=== PATIENT | female | born 1975 | race Caucasian/White ===

== ENCOUNTER 2017-09-11 09:18 | Emergency (ER) | payer OTHER ==
[~2017-09-11] VITALS: Ht 172.7 cm; Wt 70.5 kg
[~2017-09-11 09:18] MED LIST: Z.0.NO CURRENT MEDS
[2017-09-11 09:42] VITALS: BP 126/88; PULSE 83; RESP 16; TEMP 98.1; O2SAT 99
[2017-09-11] MEDS ORDERED: PROCHLORPERAZINE INJ 10 MG/2 ML VIAL IVP ONE (10:00)
[2017-09-11] MEDS ORDERED: diphenhydrAMINE HCL 50 MG/ML VIAL IVP ONE (10:00)
[2017-09-11] MEDS ORDERED: SODIUM CHLORIDE 0.9% FLUSH 10 ML FLUSH IV FLUSH PRN (10:00)
[2017-09-11 10:40] LABS: AUTOMATED NEUTROPHIL # 7.1 TH/MM3 (1.8-7.7); BASOPHIL % 0.4 % (0.0-2.0); EOSINOPHIL # 0.2 TH/MM3 (0-0.4); EOSINOPHIL % 2.2 % (0.0-4.0); HEMO FLAGS DIFF FINAL; LYMPH % 14.4 % (9.0-44.0); LYMPHOCYTE # 1.4 TH/MM3 (1.0-4.8); MEAN CELL VOLUME 88.8 FL (80.0-100.0); MEAN CORPUSCULAR HEMOGLOBIN 29.6 PG (27.0-34.0); MEAN CORPUSCULAR HGB CONC 33.4 % (32.0-36.0); MONO % 8.9 % (0.0-8.0); NEUT % 74.1 % (16.0-70.0); PLATELET COUNT 276 TH/MM3 (150-450); RED BLOOD COUNT 4.51 MIL/MM3 (4.00-5.30); RED CELL DISTRIBUTION WIDTH 12.6 % (11.6-17.2); WHITE BLOOD COUNT 9.6 TH/MM3 (4.0-11.0)
[2017-09-11 10:42] LABS: BLOOD, URINE SMALL (NEG); COMMENT (UR) CULT NOT INDICATED; CULTURE IF INDICATED CULT NOT INDICATED; GLUCOSE,URINE NEG (NEG); KETONE, URINE NEG (NEG); MUCUS URINE FEW /lpf (OCC); NITRITE,URINE NEG (NEG); PH, URINE 5.5 (5.0-8.5); SQUAMOUS EPITHELIAL CELL URINE 7 /hpf (0-5); URINE COLOR YELLOW (YELLW/STRAW)
[2017-09-11 10:49] LABS: APTT (PATIENT) 27.1 SEC (24.3-30.1); INTERNATIONAL NORMALIZED RATIO 0.9 RATIO; PROTHROMBIN TIME - PATIENT 10.4 SEC (9.8-11.6)
[2017-09-11 11:04] LABS: ALT (GPT) 24 U/L (10-53); ANION GAP 7 MEQ/L (5-15); AST (GOT) 14 U/L (15-37); BLOOD UREA NITROGEN 9 MG/DL (7-18); CHLORIDE 104 MEQ/L (98-107); GLOMERULAR FILTRATION RATE 104 ML/MIN (>89); POTASSIUM 3.2 MEQ/L (3.5-5.1); SODIUM (NA) 141 MEQ/L (136-145)
[2017-09-11 11:07] LABS: ALKALINE PHOSPHATASE 76 U/L (45-117); TOTAL BILIRUBIN ADULT 0.6 MG/DL (0.2-1.0)
[2017-09-11] MEDS ORDERED: TRAV0.00 EACH EYE (11:33)
--- NOTE | 2017-09-11 11:43 | PD ---
HPI Chief Complaint: Headache Time Seen by Provider: 11:29 Travel History International Travel<30 days: No Contact w/Intl Traveler<30days: No Traveled to known affect area: No History of Present Illness HPI 41 YO F presents to the ED for evaluation of month long history of episodic headaches behind the ears, behind the eyes and radiating to the back of the neck with associated neck stiffness, buzzing in the ears, photophobia, noise sensitivity, gait disturbance, nausea. She describes her symptoms as "motion sickness" but denies vertigo. She states that her headaches usually start while she is sleeping and a "rushing sound" in the ears alerts her to the oncoming headache. Headache is described as constant, 10/10 on presentation. She states that the symptoms are also brought on by wind hitting her face in the car. No alleviating factors reported. She was evaluated by a neurologist, an integration lead and an ENT. She states that she had an outpatient MRI and a "vestibular study" that was unremarkable. She thinks that her symptoms are related to a head injury that occurred at work couple years ago. She was prescribed meclizine by the ENT and Depakote by the neurologist but has been noncompliant with the medications. She states "I don't want to tell you to much because I want you to figure out what is going on." She also complains of a few days history of "beige-colored stool." She's been taking Tylenol and she thinks this has affected her bilirubin. She denies abdominal pain, constipation , diarrhea, melena, hematochezia. She denies chronic health problems and takes no daily medications. PFSH Past Medical History Diminished Hearing: No Glaucoma: Yes Immunizations Current: Yes Tetanus Vaccination: < 5 Years ?: Not LMP: 08/27/17 Past Surgical History Gynecologic Surgery: Yes (polyps removed) Tonsillectomy: Yes Social History Alcohol Use: No Tobacco Use: No Substance Use: No Allergies-Medications (Allergen,Severity, Reaction): Coded Allergies: Sulfa (Sulfonamide Antibiotics) (Unverified Allergy, Mild, 09/11/17) Reported Meds & Prescriptions Reported Meds & Active Scripts Active Reported Travatan Z Opth Drops (Travoprost) 0.004 % Soln 1 Drop EACH EYE HS No Current Meds (Miscellaneous Medication) Misc Review of Systems Except as stated in HPI: all other systems reviewed are Neg Physical Exam Narrative GENERAL: Well-nourished, well-developed white female in no acute distress. SKIN: Warm and dry. HEAD: Normocephalic. Atraumatic. EYES: No scleral icterus. No injection or drainage. PERRLA. EOMI. ENT: Pearly brown tympanic membranes bilaterally. Nasal mucosa is moist. Oropharynx without erythema, edema or exudate. NECK: Supple, trachea midline. No JVD or lymphadenopathy. CARDIOVASCULAR: Regular rate and rhythm without murmurs, gallops, or rubs. No carotid bruits. 2+ DP and radial pulses bilaterally. RESPIRATORY: Breath sounds clear and equal bilaterally. No accessory muscle use. GASTROINTESTINAL: Abdomen soft, non-tender, nondistended. + Bowel sounds MUSCULOSKELETAL: No cyanosis, or edema. Moves extremities spontaneously. NEUROLOGICAL: Awake and alert. Cranial nerves II through XII intact. Motor and sensory grossly within normal limits. Five out of 5 muscle strength in all muscle groups. Normal speech. No pronator drift. No ataxia. BACK: Nontender without obvious deformity. No CVA tenderness. Data Data Last Documented VS Vital Signs Date Time Temp Pulse Resp B/P (MAP) Pulse Ox O2 Delivery O2 Flow Rate FiO2 09/11/17 14:04 09/11/17 13:58 68 18 98 Room Air 09/11/17 11:44 97.6 Orders Orders Complete Blood Count With Diff (09/11/17 09:48) Comprehensive Metabolic Panel (09/11/17 09:48) Lipase (09/11/17 09:48) Prothrombin Time / Inr (Pt) (09/11/17 09:48) Act Partial Throm Time (Ptt) (09/11/17 09:48) Urinalysis - C+S If Indicated (09/11/17 09:48) Iv Access Insert/Monitor (09/11/17 09:48) Sodium Chloride 0.9% Flush (Ns Flush) (09/11/17 10:00) Electrocardiogram (09/11/17 09:48) Ed Urine Pregnancytest Poc (09/11/17 09:48) Ct Brain W/O Iv Contrast(Rout) (09/11/17 09:48) Prochlorperazine Inj (Compazine Inj) (09/11/17 10:00) Diphenhydramine Inj (Benadryl Inj) (09/11/17 10:00) Calcium Carbonate (Oscal) (09/11/17 12:15) Potassium Chloride (Kcl) (09/11/17 12:15) Ed Discharge Order (09/11/17 12:30) Labs Laboratory Tests Test 09/11/17 10:05 White Blood Count 9.6 TH/MM3 Red Blood Count 4.51 MIL/MM3 Hemoglobin 13.4 GM/DL Hematocrit 40.0 % Mean Corpuscular Volume 88.8 FL Mean Corpuscular Hemoglobin 29.6 PG Mean Corpuscular Hemoglobin Concent 33.4 % Red Cell Distribution Width 12.6 % Platelet Count 276 TH/MM3 Mean Platelet Volume 7.9 FL Neutrophils (%) (Auto) 74.1 % Lymphocytes (%) (Auto) 14.4 % Monocytes (%) (Auto) 8.9 % Eosinophils (%) (Auto) 2.2 % Basophils (%) (Auto) 0.4 % Neutrophils # (Auto) 7.1 TH/MM3 Lymphocytes # (Auto) 1.4 TH/MM3 Monocytes # (Auto) 0.9 TH/MM3 Eosinophils # (Auto) 0.2 TH/MM3 Basophils # (Auto) 0.0 TH/MM3 CBC Comment DIFF FINAL Differential Comment Prothrombin Time 10.4 SEC Prothromb Time International Ratio 0.9 RATIO Activated Partial Thromboplast Time 27.1 SEC Urine Color YELLOW Urine Turbidity HAZY Urine pH 5.5 Urine Specific [place] 1.017 Urine Protein NEG mg/dL Urine Glucose (UA) NEG mg/dL Urine Ketones NEG mg/dL Urine Occult Blood SMALL Urine Nitrite NEG Urine Bilirubin NEG Urine Urobilinogen LESS THAN 2.0 MG/DL Urine Leukocyte Esterase NEG Urine RBC 1 /hpf Urine WBC 1 /hpf Urine Squamous Epithelial Cells 7 /hpf Urine Mucus FEW /lpf Microscopic Urinalysis Comment CULT NOT INDICATED Blood Urea Nitrogen 9 MG/DL Creatinine 0.63 MG/DL Random Glucose 94 MG/DL Total Protein 6.8 GM/DL Albumin 3.6 GM/DL Calcium Level 8.4 MG/DL Alkaline Phosphatase 76 U/L Aspartate Amino Transf (AST/SGOT) 14 U/L Alanine Aminotransferase (ALT/SGPT) 24 U/L Total Bilirubin 0.6 MG/DL Sodium Level 141 MEQ/L Potassium Level 3.2 MEQ/L Chloride Level 104 MEQ/L Carbon Dioxide Level 30.0 MEQ/L Anion Gap 7 MEQ/L Estimat Glomerular Filtration Rate 104 ML/MIN Lipase 181 U/L [facility] Medical Decision Making Medical Screen Exam Complete: Yes Emergency Medical Condition: Yes Differential Diagnosis Cephalgia versus migraine versus otitis media versus post traumatic headache versus other Narrative Course 41 YO F presents to the ED for evaluation of month long history of episodic headaches behind the ears, behind the eyes and radiating to the back of the neck with associated neck stiffness, buzzing in the ears, photophobia, noise sensitivity, gait disturbance, nausea. She describes her symptoms as "motion sickness" but denies vertigo. She states that her headaches usually start while she is sleeping and a "rushing sound" in the ears alerts her to the oncoming headache. Headache is described as constant, 10/10 on presentation. She states that the symptoms are also brought on by wind hitting her face in the car. No alleviating factors reported. She was evaluated by a neurologist, an integration lead and an ENT. She states that she had an outpatient MRI and a "vestibular study" that was unremarkable. She thinks that her symptoms are related to a head injury that occurred at work couple years ago. She was prescribed meclizine and Depakote but has been noncompliant with the medications. She states "I don't want to tell you to much because I want you to figure out what is going on." She also complains of a few days history of "beige-colored stool." She's been taking Tylenol and she thinks this has affected her bilirubin. She denies abdominal pain, constipation, diarrhea, melena, hematochezia. Vitals reviewed. Physical exam is reassuring. No focal neuro deficits. ENT exam is unremarkable. Abdomen is soft and nontender. Workup was initiated in triage when the patient was administered Compazine, Benadryl IV. CBC: No leukocytosis or anemia Coags: INR 0.9 CMP: Potassium 3.2. Calcium 8.4. Otherwise unremarkable Lipase: 181 UA: No culture indicated ED urine test: Negative CT brain: Normal exam per radiology read. EKG: Rate 68, sinus rhythm. VT interval 173, QRS 92, QTC 424. Normal axis. No acute ST changes. Reviewed by Dr. Santos. The patient was administered 40 mEq potassium and 1 g calcium by mouth. I discussed the results of the workup with the patient. I suggested that she eat a varied diet or consider a vitamin supplement daily, comply with the meclizine prescribed by the ENT for her headaches and follow-up with the neurologist or the ENT. The patient is agreeable to this plan. She is stable and discharged home. Diagnosis Primary Impression: Chronic headache Qualified Codes: R51 - Headache Additional Impressions: Hypokalemia Hypocalcemia Referrals: Ear / Nose / Throat Specialist Neurologist Patient Instructions: Chronic Post Traumatic Headache (ED), General Instructions Additional Instructions: Rest, hydrate. Eat a varied diet or consider a daily vitamin supplement. Avoid known headache triggers and stressors as possible. Fill the meclizine prescription provided to you and take as prescribed. Follow-up with the ENT or neurologist as discussed. Return to the ED for any urgent or emergent medical condition. Disposition: 01 DISCHARGE HOME Condition: Stable Mila Welch Sep 11, 2017 11:43
[2017-09-11 11:44] VITALS: BP 117/80; PULSE 63; RESP 18; TEMP 97.6; O2SAT 98
[2017-09-11] MEDS ORDERED: POTASSIUM CHLORIDE 20 MEQ CONTROLLED RELEASE TAB PO ONE (12:15)
[2017-09-11] MEDS ORDERED: CALCIUM CARBONATE 1.25 GM (CA 500 MG) TAB PO ONE (12:15)
--- NOTE | 2017-09-11 12:18 | RADRPT ---
EXAM DATE/TIME: 09/11/2017 12:05 [facility] COMPARISON: No previous studies available for comparison. INDICATIONS : Headaches since April RADIATION DOSE: 34.05 CTDIvol (mGy) MEDICAL HISTORY : None SURGICAL HISTORY : None. ENCOUNTER: Initial ACUITY: 4 - 6 months PAIN SCALE: 10/10 LOCATION: cranial TECHNIQUE: Multiple contiguous axial images were obtained of the head. Using automated exposure control and adj ustment of the mA and/or kV according to patient size, radiation dose was kept as low as reasonably a chievable to obtain optimal diagnostic quality images. DICOM format image data is available electro nically for review and comparison. FINDINGS: CEREBRUM: The ventricles are normal for age. No evidence of midline shift, mass lesion, hemorrhage or acute in farction. No extra-axial fluid collections are seen. POSTERIOR FOSSA: The cerebellum and brainstem are intact. The 4th ventricle is midline. The cerebellopontine angle i s unremarkable. EXTRACRANIAL: The visualized portion of the orbits is intact. SKULL: The calvaria is intact. No evidence of skull fracture. CONCLUSION: Normal examination. Alvin Britt Jr., MD on September 11, 2017 at 12:16 Board Certified Radiologist. This report was verified electronically.
[2017-09-11 13:58] VITALS: BP 118/69; PULSE 68; RESP 18; O2SAT 98
--- NOTE | 2017-09-11 19:01 | EKG ---
Date Performed: 09/11/2017 Time Performed: 11:36:03 PTAGE: 41 years EKG: Sinus rhythm NORMAL ECG PREVIOUS TRACING : 08/04/2003 23.25 Compared to prior tracing no significant change DOCTOR: Sheri Torres Interpretating Date/Time 09/11/2017 19:00:54
== END 2017-09-11 14:20 | disposition home or self-care (01) ==
LOC: NEPC 09:18
DX: R51 Headache (principal); E87.6 Hypokalemia; E83.51 Hypocalcemia; M54.2 Cervicalgia; H40.9 Unspecified glaucoma; Z88.2 Allergy status to sulfonamides; Z79.899 Other long term (current) drug therapy
CPT/HCPCS: 70450; 80053; 81001; 83690; 84703; 85025; 85610; 85730; 93005; 96374; 96375; 99285; J0780; J1200